=== PATIENT | male | born 1965 | race Caucasian/White ===

== ENCOUNTER → 2021-06-22 09:01 | Outpatient (CLI) | payer OTHER, SELFPAY ==
[2021-06-22 19:51] LABS: COVID19 - ORCAS (NP or Nasal) Negative (Negative)
== END ==
PROVIDERS: Visit Provider Physician Assistant Medical
DX: Z20.822 Contact with and (suspected) exposure to COVID-19 (principal)
CPT/HCPCS: U0003

== ENCOUNTER → 2021-07-02 08:53 | Outpatient (CLI) | payer OTHER, SELFPAY ==
[2021-07-02 19:53] LABS: COVID19 - ORCAS (NP or Nasal) Negative (Negative)
== END ==
PROVIDERS: PCP Physician Assistant Medical; Referring Provider Physician Assistant Medical; Visit Provider Physician Assistant Medical
DX: U07.1 COVID-19 (principal)
CPT/HCPCS: U0003

== ENCOUNTER → 2023-01-09 09:22 | Outpatient (CLI) | payer MEDICARE, SELFPAY | PROVIDERS: PCP Family Medicine; Visit Provider Physician Assistant Medical | DX: J02.9 Acute pharyngitis, unspecified (principal) | CPT/HCPCS: 87070 ==

== ENCOUNTER 2025-04-14 18:07 | Emergency (ER) | payer MEDICARE, OTHER, SELFPAY ==
[2025-04-14 18:13] VITALS: BP 143/81; PULSE 63; RESP 16; TEMP 36.7; O2SAT 100
--- NOTE | 2025-04-14 18:20 | DI.RAD.S_ITS ---
PROCEDURE: XR TIBIA FUBULA RT 2V
[2025-04-14] MEDS: TET,DIPH,PERTUSS(ACELL),VAC/PF 0.5 ML SYRINGE IM (18:45)
--- NOTE | 2025-04-14 18:46 | ED_ITS ---
HPI - Extremity Injury (Lower)
--- NOTE | 2025-04-14 18:46 | ED.LOWEXIN ---
HPI - Extremity Injury (Lower) General Chief Complaint: Extremity Injury, Lower Stated Complaint: slip/fall, rt barillas injury, on blood thinners Time Seen by Provider: 04/14/25 18:46 History of Present Illness HPI Narrative: 59-year-old male presents for injury to his right barillas. He states that there were 2 truck bed next to each other and he slipped and hit/scraped his barillas. Does have a history of AFib takes Eliquis and Brilinta, unsure of tetanus vaccination. He denies weakness tingling or any other sensations/issues to his lower extremities. Was able to stand bear weight ambulate unassisted here in the emergency department. He denies any other injuries at this time. Related Data Home Medications ?Medication ?Instructions ?Recorded ?Confirmed amlodipine 10 mg tablet 10 mg PO DAILY 01/31/25 apixaban 5 mg tablet (Eliquis) 5 mg PO BID 01/31/25 atorvastatin 40 mg tablet 40 mg PO BEDTIME 01/31/25 carvedilol 25 mg tablet 25 mg PO BID 01/31/25 empagliflozin 10 mg tablet 10 mg PO DAILY 01/31/25 (Jardiance) lisinopril 25mg once daily PO 01/31/25 nitroglycerin 0.4 mg sublingual 0.4 mg sublingual Q5M PRN 01/31/25 tablet spironolactone 25 mg tablet 25 mg PO DAILY 01/31/25 Previous Rx's ?Medication ?Instructions ?Recorded lisinopril 20 mg tablet 20 mg PO DAILY #90 tabs 01/17/25 metoprolol succinate 25 mg 25 mg PO DAILY #90 tabs 01/17/25 tablet,extended release 24 hr Allergies Allergy/AdvReac Type Severity Reaction Status Date / Time No Known Drug Allergies Allergy Verified 01/24/25 13:37 Review of Systems Review of Systems Narrative: General: Denies fever, chills, weight loss HEENT: Denies headache, eye drainage, eye irritation, head trauma, sore throat, voice change Cardiovascular: Denies any chest pain, palpitations, tachycardia Respiratory: Denies any shortness of breath, cough, wheeze, stridor GI/: Denies any abdominal pain, nausea, vomiting, diarrhea, bright red blood per rectum, melanotic stools, urinary frequency, urinary retention, dysuria, hematuria MSK: Denies any joint pain, muscle pains, swelling Skin: Injury to the right barillas Neuro: Denies any headache, lightheadedness, dizziness, fainting, weakness Psych: Denies SI/HI Patient History Medical History (Updated 04/14/25 @ 19:01 by Mayank Haq DO) Post-traumatic brain syndrome Insomnia, unspecified Male erectile dysfunction, unspecified Anxiety disorder, unspecified ADHD Exam Narrative Exam Narrative: General: Cooperative, well-developed, not in acute distress HEENT: Normocephalic, atraumatic, PERRLA, normal sclera, eyelids normal Neck: Active full range of motion, atraumatic Chest: Normal to inspection, negative crepitus, no overlying erythema ecchymosis Respiratory: Normal respiratory effort, not in acute respiratory distress, clear to auscultation bilaterally negative cough, wheeze, tachypnea, rhonchi, rales Cardiology: Regular rate rhythm negative gallop, murmur, rubs GI/: No tenderness to palpation, soft, non rigid, normal to inspection, exam deferred MSK: Full active range of motion in all 4 extremities, atraumatic, no tenderness to palpation of any bony prominences Skin: Superficial abrasions noted to the right anterior barillas, no laceration, soft compartments, neurovascularly intact otherwise Neuro: Alert awake oriented x3, moves all 4 extremities spontaneously, cranial nerves intact, able to answer all questions appropriately follows commands appropriately Psych: Cooperative, negative suicidal or homicidal ideations Initial Vital Signs Initial Vital Signs: Vital Signs Temperature 98.1 F 04/14/25 18:13 Pulse Rate 63 04/14/25 18:13 Respiratory Rate 16 04/14/25 18:13 Blood Pressure 143/81 H 04/14/25 18:13 Pulse Oximetry 100 04/14/25 18:13 Oxygen Delivery Method Room Air 04/14/25 18:13 Course Orders Ordered: ED Orders 04/14/25 18:20 XR tibia fibula RT 2V Stat Discontinued Medications Diphtheria/Tetanus/Acell Pertussis (Tet,Diph,Pertuss(Acell),Vac/Pf 0.5 Ml Syringe) 0.5 ml IM .ONCE ONE Stop: 04/14/25 18:22 Last Admin: 04/14/25 18:45 Dose: 0.5 ml Documented By: C Vital Signs Vital signs: Vital Signs - 8 hr 04/14/25 18:13 Temperature 98.1 F Pulse Rate 63 Respiratory Rate 16 Blood Pressure 143/81 H Pulse Oximetry 100 Oxygen Delivery Method Room Air MDM - Extremity Injury (Lower) MDM Narrative Medical decision making narrative: Patient is a 59-year-old male with a past medical history of AFib on Eliquis and Brilinta presents for abrasion/contusion to his right barillas, he states that earlier today he slipped between 2 tract beds and hit his right barillas. He presents because he is on blood thinners he denies head strike denies any other symptoms at this time. On my exam there superficial abrasions noted compartments soft no signs of compartment syndrome neurovascularly intact otherwise able to stand bear weight ambulate unassisted. He has no other complaints no other traumas. He did have his tetanus updated. X-ray of his right lower extremity did not show any acute trauma. He will be discharged home with outpatient follow up. He understands and agrees with this plan Discharge Plan Departure Patient Disposition: Home Clinical Impression: Contusion of leg, right Instructions: DI for Contusion Activity Restrictions/Additional Instructions: Please use Tylenol as needed for your aches and pains, you may use ice as needed to help with any swelling or pain Please read the discharge instructions sheet carefully and bring all papers to all doctor follow-up visits, as it may contain information that your doctor may want to see. Disease processes change and evolve, if your symptoms worsen or if you develop any new symptoms that are concerning to you please return for evaluation. Your evaluation today does not show any evidence of any life-threatening/serious illnesses requiring admission to the hospital or surgery. Please follow-up with your doctor for re-evaluation in approximately 1 day. Seek immediate medical attention for any worrisome symptoms. *If you do not have a primary care provider please contact [facility] Resource line at [phone]. They will ask some questions about your medical history and help get you set up with a doctor in the community. Prescriptions: No Action atorvastatin 40 mg tablet 40 mg PO BEDTIME carvedilol 25 mg tablet 25 mg PO BID Rx Instructions: must administer with a meal/food spironolactone 25 mg tablet 25 mg PO DAILY amlodipine 10 mg tablet 10 mg PO DAILY Eliquis 5 mg tablet 5 mg PO BID Jardiance 10 mg tablet 10 mg PO DAILY lisinopril 25mg once daily PO nitroglycerin 0.4 mg tablet, sublingual 0.4 mg sublingual Q5M PRN Rx Instructions: do not exceed 3 doses per episode metoprolol succinate 25 mg tablet extended release 24 hr 25 mg PO DAILY Qty: 90 1RF lisinopril 20 mg tablet 20 mg PO DAILY Qty: 90 1RF Referrals: Destin Davalos MD [Primary Care Provider, Family Practice] Stand Alone Forms: Patient Portal/API
[2025-04-14 19:07] VITALS: BP 129/69; PULSE 69; O2SAT 97
== END 2025-04-14 19:07 | disposition home or self-care (01) ==
PROVIDERS: Emergency Provider Student in an Organized Health Care Education/Training Program; PCP Family Medicine
DX: S80.11XA Contusion of right lower leg, initial encounter (principal); W01.198A Fall on same level from slipping, tripping and stumbling with subsequent striking against other object, initial encounter; Z79.01 Long term (current) use of anticoagulants; Z23 Encounter for immunization
CPT/HCPCS: 73590; 90471; 99283; 90715

== ENCOUNTER → 2025-06-06 13:56 | Outpatient (CLI) | payer OTHER, SELFPAY ==
[2025-06-06 18:54] LABS: Add Manual Diff / Slide Review NO; Hematocrit 41.4 % (41-53); Hemoglobin 14.3 g/dL (13.5-17.5); Lymphocytes Absolute Auto 800 /uL (1100-4500); Mean Corpuscular HGB Conc 34.5 % (30-36); Mean Corpuscular Hemoglobin 32.7 PG (26-34); Mean Corpuscular Volume 94.5 fL (80-100); Platelet Count 209 X10^3/uL (150-400)
[2025-06-06 19:03] LABS: Hemoglobin A1C% w Est Avg Glu 4.4 % (4.0-6.0)
[2025-06-06 19:06] LABS: Blood Urea Nitrogen 20 mg/dL (9-20); Calcium 9.3 mg/dL (8.4-10.2); Carbon Dioxide 26 mmol/L (22-32); Chloride 105 mmol/L (98-107); Cholesterol 145 mg/dL (140-199); Estimated Glomerular Filt Rate > 60 mL/min (>60); Glucose 90 mg/dL (70-99); HDL Cholesterol 48 mg/dL (40-60); HEMOLYSIS < 15 (0-50); Potassium 4.2 mmol/L (3.4-5.1); Sodium 139 mmol/L (137-145); Triglycerides 90 mg/dL (35-150)
[2025-06-06 19:33] LABS: TSH w/ Reflex to FT4 1.12 uIU/mL (0.47-4.68)
[2025-06-06 19:37] LABS: Prostate Specific Antigen 1.06 ng/mL (0.10-4.00)
== END ==
PROVIDERS: PCP Family Medicine; Visit Provider Family Medicine
DX: I50.1 Left ventricular failure, unspecified (principal); I25.118 Atherosclerotic heart disease of native coronary artery with other forms of angina pectoris; I1A.0 Resistant hypertension; I48.91 Unspecified atrial fibrillation; I10 Essential (primary) hypertension; I25.10 Atherosclerotic heart disease of native coronary artery without angina pectoris; R06.02 Shortness of breath; R06.09 Other forms of dyspnea; N52.9 Male erectile dysfunction, unspecified
CPT/HCPCS: 80048; 80061; 82088; 83036; 84153; 84244; 84443; 85025